=== PATIENT | male | born 1970 | race Caucasian/White ===

== ENCOUNTER 2017-05-30 06:07 | Day surgery (SDC) | payer OTHER ==
[2017-05-23 11:27] VITALS: BMI 34.7
[2017-05-30] MEDS ORDERED: THROMBIN (BOVINE) 5,000 UNIT VIAL TP ONE ×2 (07:17→09:56)
[2017-05-30] MEDS ORDERED: LIDOCAINE 1%/EPI 1:100000 (20 ML MULTI DOSE VIAL) ONE (07:17)
[2017-05-30] MEDS ORDERED: methylPREDNISolone ACET (DEPO) 40 MG/1 ML VIAL ONE (07:17)
[2017-05-30] MEDS ORDERED: oxyCODONE HCL 10 MG SUSTAINED ACTING TABLET PO ONE (07:30)
--- NOTE | 2017-05-30 07:57 | HP ---
History & Physical Update - History History: No Change - Physical Physical: No Change - Assessment Assessment: No Change - Plan Plan: No Change
[2017-05-30] MEDS ORDERED: DEXAMETHASONE SOD PHOSPHATE/PF 10 MG/ML SDV ONE (08:17)
[2017-05-30] MEDS ORDERED: BUPIVACAINE HCL/PF 2.5 MG/ML - 30 ML VIAL IJ ONE (08:18)
[2017-05-30] MEDS ORDERED: MIDAZOLAM HCL 2 MG/2 ML SINGLE DOSE VIAL ONE ×2 (08:18→08:53)
[2017-05-30] MEDS ORDERED: LIDOCAINE 1% P/F 10 MG/ML VIAL ONE (09:00)
[2017-05-30] MEDS ORDERED: ceFAZolin SODIUM 1 GM VIAL ONE (09:14)
[2017-05-30] MEDS ORDERED: ONDANSETRON 4 MG/2 ML VIAL ONE (09:17)
[2017-05-30] MEDS ORDERED: DEXAMETHASONE SOD PHOSPHATE 4 MG/1 ML VIAL ONE (09:18)
[2017-05-30] MEDS ORDERED: LIDOCAINE 1%/EPI 1:100000 (50 ML MULTI DOSE VIAL) INF ONE (09:31)
[2017-05-30] MEDS ORDERED: SUCCINYLCHOLINE CHLORIDE 200 MG/10 ML VIAL ONE (09:39)
[2017-05-30] MEDS ORDERED: PHENYLEPHRINE HCL 10 MG/1 ML SINGLE DOSE VIAL ONE (09:39)
[2017-05-30] MEDS ORDERED: ePHEDrine SULFATE 50 MG/1 ML AMPULE ONE (09:39)
[2017-05-30] MEDS ORDERED: methylPREDNISolone ACET (DEPO) 40 MG/1 ML VIAL IM ONE (09:55)
--- NOTE | 2017-05-30 11:04 | OP ---
Operative Note - Note: Operative Date: 05/30/17 Pre-Operative Diagnosis: spinal stenosis Operation: L4/L5 and L5-S1 laminectomy Surgeon: Efrain Marx Electronic Court Recorder: Rashmi Cancino Anesthesiologist/SAMPLE CASE PORTER: Yumiko Munoz Anesthesia: Spinal Estimated Blood Loss (mls): 50 Fluid Volume Replaced (mls): 1,000 Operative Report Dictated: Yes
--- NOTE | 2017-05-30 11:05 | SURG ---
Surgery [employer] Note [employer]: Rashmi Cancino PA-C Date of Service: 05/30/17 Diagnosis: spinal stenosis Procedure: L4-L5 and L5-S1 laminectomy I was present for the entirety of the operative procedure. For further detail, please refer to operative report. Visit type - Case Type Case Type: Scheduled Admission - Emergency Emergency Visit: No - New patient This patient is new to me today: Yes Date on this admission: 05/30/17
--- NOTE | 2017-05-30 12:13 | OP ---
DATE OF OPERATION: 05/30/2017 PREOPERATIVE DIAGNOSIS: Spinal stenosis, L4-5 and L5-S1. POSTOPERATIVE DIAGNOSIS: Spinal stenosis, L4-5 and L5-S1. PROCEDURE PERFORMED: Laminectomy, L4-5 and L5-S1. SURGEON: Efrain Marx MD SHIFT LEADER: LUIS ARMANDO Talavera ESTIMATED BLOOD LOSS: 50 mL. INTRAVENOUS FLUIDS: Per Anesthesia. ANESTHESIA: Spinal/TLIP. COMPLICATIONS: None. DISPOSITION: Patient brought to the PACU in stable condition. INDICATION FOR SURGERY: Amos is a 46-year-old gentleman who has been suffering from pain from his back down his legs. X-rays and MRI were completed which showed that he had spinal stenosis at L4-5 and L5-S1. He had gone through an exhaustive course of treatment which included medications, physical therapy, as well as injections. Unfortunately, his pain continued to persist despite all this. At this point, risks, benefits, and alternatives are discussed, and the patient consented to surgery. DESCRIPTION OF PROCEDURE: Patient was brought to the operating room by the Anesthesia staff after appropriate patient identification was performed. Spinal anesthesia was given. Appropriate anesthetic lines were placed. TLIP block was given. Two needles were placed in his back to jose off the L4-S1 segments. X-ray was taken to confirm this was correct. Needle was removed, and 10 mL of lidocaine with epinephrine was injected into the back. At the time, his back was prepped and draped in a sterile manner. An incision was made from the top of L4 down to the bottom of S1. Dissection was carried down to the fascia. The fascia was then split open at this time and appropriate retractors were placed in. A spinal needle was placed onto the L4 lamina to jose off the L4-5 level. An x-ray was taken to confirm this was correct. Needle was removed, and the microscope was brought in. The intraspinal segment of L4-5 and L5-S1 was removed. The spinous processes of L5 was removed. A bur was used to complete the laminectomy. A complete decompression was performed in such that by the end of the procedure the L5-S1 nerve roots appeared to be well decompressed. All bleeding was well controlled at this time. Steroids were placed over the nerve root. FloSeal was placed over that. The fascia was closed with a number 1 Vicryl suture. Subcutaneous tissue was closed with 2-0 Vicryl sutures. Skin was closed with 3-0 Monocryl suture. Dermabond was applied. Steri-Strips were applied. Sterile dressing was applied. Patient was placed supine on the OR bed and brought to the PACU in stable condition. Mickey GOMEZ/[id number]
[2017-05-30] MEDS ORDERED: oxyCODONE HCL 5 MG TABLET ONE (13:51)
[2017-05-30] MEDS ORDERED: oxyCODONE HCL 5 MG TABLET PO PRN (14:10)
[2017-05-30] MEDS ORDERED: ONDANSETRON 4 MG/2 ML VIAL IVPUSH PRN (14:10)
[2017-05-30] MEDS ORDERED: LACTATED RINGERS SOLUTION 1,000 ML IV SCH (14:15)
[2017-05-30 15:31] VITALS: BP 143/90; PULSE 89; TEMP 98.3
== END 2017-05-30 14:45 | disposition home or self-care (01) ==
LOC: FASU 06:07
PROVIDERS: ATTEND Orthopaedic Surgery Orthopaedic Surgery of the Spine
PROC: 01NB0ZZ Release Lumbar Nerve, Open Approach (ICD-10-PCS; principal; 2017-05-30 09:34)
DX: M48.061 Spinal stenosis, lumbar region without neurogenic claudication (principal); M48.07 Spinal stenosis, lumbosacral region
CPT/HCPCS: 72100-TC; 94760